=== PATIENT | male | born 1945 | race Caucasian/White ===

== ENCOUNTER 2016-05-16 17:25 | Emergency (ER) | payer OTHER ==
[2016-05-16 17:41] VITALS: BP 129/52; PULSE 64; TEMP 97.5; BMI 25.8
[2016-05-16] MEDS ORDERED: IBUPROFEN 600 MG TABLET (FP) PO ONE ×3 (18:13→18:23)
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
== END 2016-05-16 18:28 | disposition home or self-care (01) ==
LOC: JERFT 17:25
DX: S29.012A Strain of muscle and tendon of back wall of thorax, initial encounter (principal); S16.1XXA Strain of muscle, fascia and tendon at neck level, initial encounter; V49.49XA Driver injured in collision with other motor vehicles in traffic accident, initial encounter; Y92.488 Other paved roadways as the place of occurrence of the external cause; Y93.89 Activity, other specified; I10 Essential (primary) hypertension; Z95.5 Presence of coronary angioplasty implant and graft; Z85.118 Personal history of other malignant neoplasm of bronchus and lung
CPT/HCPCS: 99281-25